=== PATIENT | male | born 1990 | race Caucasian/White ===

== ENCOUNTER 2016-04-20 11:30 | Inpatient (IN) | payer OTHER, MEDICAID ==
[2016-04-20] MEDS ORDERED: KETAMINE 50 MG/ML 10 ML VIAL IM STA (11:31)
[2016-04-20] MEDS ORDERED: ZIPRASIDONE 20 MG VIAL IM STA ×2 (12:11→13:16)
[2016-04-20] MEDS ORDERED: LORazepam 2 MG/ML SYRINGE IM STA ×2 (12:11→23:03)
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
[2016-04-20 12:27] LABS: Appearance,Urine Clear (Clear); Basophils % (A) 0 %; Bilirubin,Urine Negative (Negative); Eosinophils # (A) 0.1 k/uL (0-0.7); Eosinophils % (A) 1 %; Glucose,Urine (UA) Negative (Negative); HCT 46.4 % (39.0-53.0); HDW 2.39; HGB 15.9 gm/dL (13.0-17.5); Ketones,Urine Trace (Negative); Leukocyte Esterase,Urine Negative (Negative); Luc % (Auto) 2; Lymphocytes # (A) 1.1 k/uL (1.0-4.8); Lymphocytes % (A) 11 %; MCH 32.5 pg (25.0-35.0); MCHC 34.4 g/dL (31.0-37.0); MCV 94.5 fL (80.0-100.0); Mean Platelet Volume 7.5; Monocytes # (A) 0.7 k/uL (0-1.0); Monocytes % (A) 7 %; Neutrophils # (A) 7.8 k/uL (1.3-7.7); Neutrophils % (A) 79 %; Nitrite,Urine Negative (Negative); Protein,Urine Negative (Negative); RBC 4.91 m/uL (4.30-5.90); RDW 12.7 % (11.5-15.5); Specific Gravity,Urine 1.007 (1.001-1.035); UA Billing (MACRO vs. MICRO) CHEM; Urobilinogen,Urine <2.0 mg/dL (<2.0); WBC 9.9 k/uL (3.8-10.6); WBC (Perox) 9.64
[2016-04-20 12:36] LABS: ALT 43 U/L (21-72); AST 42 U/L (17-59); Acetaminophen <10.0 ug/mL; Alcohol <10 mg/dL; Alkaline Phosphatase 49 U/L (38-126); Anion Gap 14 mmol/L; Blood Urea Nitrogen 7 mg/dL (9-20); Calcium 9.9 mg/dL (8.4-10.2); Carbon Dioxide 25 mmol/L (22-30); Chloride 103 mmol/L (98-107); Glucose 98 mg/dL (74-99); Non-African American GFR(MDRD) >60 (>60 ml/min/1.73 sqM); Potassium 3.9 mmol/L (3.5-5.1); Salicylate <1.0 mg/dL; Sodium 142 mmol/L (137-145); Total Bilirubin 0.8 mg/dL (0.2-1.3); Total Protein 7.3 g/dL (6.3-8.2)
[2016-04-20 13:03] LABS: Creatine Kinase MB 7.9 ng/mL (0.0-2.4)
[2016-04-20] MEDS ORDERED: diphenhydrAMINE 50 MG/ML 1 ML VIAL IVP STA (13:03)
[2016-04-20] MEDS ORDERED: LORazepam 2 MG/ML SYRINGE IV STA (13:03)
[2016-04-20] MEDS ORDERED: SODIUM CHLORIDE 0.9% 1,000 ML IV STA (13:11)
--- NOTE | 2016-04-20 16:38 | CT ---
EXAMINATION TYPE: CT brain roddy wo con DATE OF EXAM: 04/20/2016 4:33 PM COMPARISON: NONE HISTORY: Headache. Neck pain. CT DLP: 1724.5 mGycm Automated exposure control for dose reduction was used. TECHNIQUE: CT scan of the head and cervical spine are performed without contrast. FINDINGS: Ventricles and sulci appear normal. There is no mass effect nor midline shift. There is n o sign of intracranial hemorrhage. The calvarium is intact. Cervical vertebra have normal spacing and alignment. Posterior elements are intact. Skull base is int act. Facet joints appear normal. There is no evidence for fracture. IMPRESSION: Normal CT scan of the brain. Normal CT scan of the cervical spine.
[2016-04-20] MEDS ORDERED: HALOPERIDOL LACTATE 5 MG/ML 1 ML VIAL IM STA (23:02)
[2016-04-21] MEDS ORDERED: ACETAMINOPHEN TAB 325 MG TAB PO PRN (03:29)
[2016-04-21] MEDS ORDERED: MAGNESIUM HYDROXIDE 2,400 MG/10 ML CUP PO PRN (03:29)
[2016-04-21] MEDS ORDERED: MAG HYDROX/AL HYDROX/SIMETH 30 ML CUP PO PRN (03:29)
[2016-04-21] MEDS ORDERED: HALOPERIDOL LACTATE 5 MG/ML 1 ML VIAL IM PRN ×2 (03:35→16:19)
[2016-04-21] MEDS ORDERED: LORazepam 2 MG/ML SYRINGE IM PRN (03:37)
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
[2016-04-21] MEDS: LORazepam 1 MG TAB PO PRN ×2 (17:53→21:57)
[2016-04-21] MEDS: HALOPERIDOL 5 MG TAB PO PRN (19:29)
[2016-04-21] MEDS ORDERED: QUEtiapine 100 MG TAB PO SCH (21:00)
--- NOTE | 2016-04-22 09:06 | P.PN ---
Progress Note - Text Interval history: The patient is found in his room he follows me to an interview room. It is documented that he slept approximate 7 hours last night. He continues to feel tired. He did get when necessary medication last evening. He denies having any symptoms but he does at times speak quietly and turns his head to the right side he has odd gestures with his upper extremities. He does endorse a dissociation feeling thinking that none of this is real. He continues to lack insight in his presentation to the hospital. With his permission I did contact his mother milo who completed the petition. She states that the patient typically does not experience hallucinations or delusional thoughts. She does not believe there is ever been a diagnosis of bipolar disorder or schizophrenia. She does believe that his current symptoms are drug-induced. She feels the problems began when his primary care physician put him on Adderall and this was after the patient had stopped Suboxone. Mental status exam: The patient is disheveled hygiene grooming impaired. Eye contact good speech is fluent mainly reactive to questions asked. He verbalizes he would like to go home several times. He is reporting no auditory or visual hallucinations however it's likely he is still is experiencing them based on his behavior in the session. He seemed to be responding to internal stimuli. He is endorsing no specific delusions again he is likely under reporting. Insight and judgment impaired. He is demonstrating no verbal or physical aggressiveness. He appears tired but not lethargic. Plan: The patient's will continue on the Seroquel I will increase the dose to 100 mg twice daily. We will monitor him for safety. It appears that his symptoms are slowly improving but he is not yet appropriate for discharge. His mother states he may not return home he will need other placement arranged. Vital signs reviewed.
--- NOTE | 2016-04-22 09:52 | CONS ---
DATE OF CONSULTATION: 04/21/2016 REASON FOR CONSULTATION: Medical management, requested by Dr. Mora. CONSULTATION: This is a 25-year-old patient of Dr. Danis Yeung. The patient was brought into the ER yesterday. The patient was brought in being restrained by the police. The patient had been very combative, threatening. The patient's furniture at the house had also been thrown around. He had to be [place] and pepper-sprayed. He was brought in by EMS after being handcuffed, restrained, and very combative. The patient was verbally and physically threatening people. The patient received ketamine 320 mg once, Ativan 2 mg IM once, Geodon 20 mg IM once, Ativan 2 mg once, Benadryl 50 mg once in the ER and then the Geodon 20 had to be repeated again. Patient had also received Haldol 5 mg day. He was calmed down before he could be brought into the psychiatry unit. I saw the patient in the presence of the nurse. The patient did state that he was [place] He was not hearing voices but there was a voice telling him to take care of all of these things. Earlier the patient was noted to be talking to himself. Other than that, the patient does reflect interest in music and plays the guitar, sometimes the piano. He is not employed. He lives with his parents. No family is present. REVIEW OF SYSTEMS: CONSTITUTIONAL: None. HEENT: None. RESPIRATORY: None. CARDIOVASCULAR: None. GASTROINTESTINAL: None. GENITOURINARY: None. MUSCULOSKELETAL: Some achiness in the muscles. DERMATOLOGICAL: Some bruising. HEMATOLOGICAL: Some bruising. PSYCHIATRY: As above. NEUROLOGICAL: None. PAST MEDICAL HISTORY: Patient states that he was on Suboxone. He was on Adderall in the past and then went back to take Adderall for the last 2 months. He sometimes takes extra doses of Adderall. He was diagnosed with ADHD. PAST SURGICAL HISTORY: None. SOCIAL HISTORY: Lives with his parents. Apparently history of alcoholism documented in ER. Denies smoking. Not employed. FAMILY HISTORY: Patient cannot tell. HOME MEDICATIONS: Adderall XR 30 mg daily. ALLERGIES: None. On examination, temperature 98.7, pulse 120, respiration 15, blood pressure 144/65, pulse ox 97% on room air. GENERAL APPEARANCE: Average built, lying in bed, somewhat restless, keeps fidgeting. EYES: Pupils equal. Conjunctivae normal. HEENT: External appearance of nose and ears normal. Oral cavity normal. NECK: JVD not raised. Mass not palpable. RESPIRATORY: Effort normal. Lungs are clear. CARDIOVASCULAR: First and second sounds normal. No edema. ABDOMEN: Soft, nontender. Liver and spleen not palpable. LYMPHATIC: No masses felt in the neck, groin or axillae. PSYCHIATRY: Patient is otherwise delusional. Had thoughts of jumping as stated above. NEUROLOGICAL: Pupils equal. No facial asymmetry. Moving all 4 limbs. Keeps fidgeting, moving about. INVESTIGATIONS: White count 9.8, hemoglobin 15.9, potassium 3.9, CPK 709. Serum ketones, trace positive. Urine drug screen positive for amphetamines. ASSESSMENT: 1. Possible acute toxicity with Adderall XR given. Symptoms including delusions and thought process is disconnected. The patient may have underlying psychosis. We will have to let the effects wear off. 2. Mild rhabdomyolysis from severe agitation. 3. Akathisia, side effect of the above drug. PLAN: I did review the literature. Long-acting benzodiazepine may be helpful. I did discuss this with Dr. Azevedo. In the meantime, encourage oral fluids. I would not recommend IV fluids as patient could be extremely harmful to himself. Attempt to encourage oral fluids.
[2016-04-22] MEDS: QUEtiapine 100 MG TAB PO SCH ×2 (10:00→21:26)
--- NOTE | 2016-04-23 09:41 | P.PN ---
Progress Note - Text Interval history: The patient is found in his room he follows me to an interview room. He states that he slept throughout the night and staff documented he slept 6 hours. He reports his appetite is stable. He denies having any symptoms however he still has an odd affect and demonstrates some psychomotor slowing. His hygiene and grooming are quite poor he has a follow body odor which is evident upon entering his room. He states he's been showering every day. He has not had any contact with his mother. He has no questions regarding the Seroquel and states he doesn't feel like he is on anything. Mental status exam: The patient is alert he is a disheveled appearance he is malodorous he is dressed in hospital gowns. He has visible tattoos on his upper extremities. Eye contact is intermittent. He demonstrates some psychomotor slowing, he demonstrates some bizarre affect with exaggerated laughter at times. He appears to still have some symptoms of psychosis although they are not endorsed. Insight and judgment is impaired. He demonstrates no verbal or physical aggressiveness and is directable. In terms of daily the week he states it's Friday with a second guess he states it's Friday. He is able to name the month and year. He is aware of his current location. Plan: We will titrate the Seroquel to 100 mg in the morning 200 mg in the evening. He is directed to shower and changed his bedding. He has not attended groups he is encouraged to start participating in the milieu. We will continue to monitor him for safety. He is not appropriate for discharge at this time but we anticipate his symptoms to improve over the course of the week. We will have to discuss placement options as his mother has previously stated he cannot return home. Vital signs reviewed.
[2016-04-23] MEDS ORDERED: QUEtiapine 100 MG TAB PO STA (10:10)
[2016-04-23] MEDS: QUEtiapine 100 MG TAB PO SCH (10:11)
[2016-04-23] MEDS: LORazepam 1 MG TAB PO PRN ×2 (10:13→14:33)
[2016-04-23] MEDS: QUEtiapine 200 MG TAB PO SCH (21:47)
[2016-04-24] MEDS: QUEtiapine 100 MG TAB PO SCH (08:15)
--- NOTE | 2016-04-24 10:24 | P.PN ---
Progress Note - Text Interval history: The patient is found in his room he follows me to an interview room. He expresses concerns that people are working against him. He feels the nurses are trying to create obstacles to prevent him from going home. He continues to believe that he is able to return home with his mother and so far she is told social work that's not possible. He is endorsing no auditory or visual hallucinations. It appears he did shower yesterday. Appetite is reported stable he did sleep through the night. He continues to voice a desire to be discharged. He is not willing to participate in inpatient chemical dependency treatment and does not wish to go to a three-quarter house. Mental status exam: The patient is alert there is some psychomotor slowing. He is a disheveled appearance he is dressed in his own clothing hygiene is improved there is no follow odor. Eye contact is intermittent. He has some suspicious thinking. He is endorsing no auditory or visual hallucinations. He reports no suicidal or homicidal ideation. Insight and judgment are limited. He demonstrates no verbal or physical aggressiveness. Affect is constricted. Plan: The patient is demonstrating slow clinical improvement. He still has some psychomotor slowing impaired insight into his presenting symptoms. We will continue to monitor him for safety he will continue on the Seroquel as written. Social work has been in contact with the patient's mother. He states he may be able to stay with his girlfriend he is asked to give us her contact information.
[2016-04-24] MEDS: QUEtiapine 200 MG TAB PO SCH (20:57)
[2016-04-25] MEDS: QUEtiapine 100 MG TAB PO SCH (08:53)
--- NOTE | 2016-04-25 09:37 | P.PN ---
Progress Note - Text Interval history: The patient is found in his room he follows me to an interview room. He reports he feels scared and frightened that he'll never be free again. He continues to not understand that his mother will not let him return home. He states "she just doesn't understand what's going on". He does endorse feelings of confusion when we discussed that's how he appears to staff. We discussed that he has not been attending groups and he is asked to attend groups so that we can more fully assess him each day. Mental status exam: The patient is alert he has a disheveled appearance he is dressed in his own clothing. Eye contact is poor he frequently looks off to the side. He frequently moves while seated in his chair but demonstrates no aggressive behavior. He reports no auditory or visual hallucinations he does seem to continue to have some paranoid thinking that is clouding his judgment. Insight and judgment are impaired. He ruminates on the idea of "wanting to be free". Affect is bland. No abnormal involuntary movements observed. Plan: The patient Seroquel will be titrated to 300 mg in the morning 100 mg in the evening. He is not yet stable for discharge. He is instructed to attend groups throughout the day. Social work notes reviewed he is not able to return home with his mother despite his belief that he can. He may require residential placement as no other options seem evident at this time. Again at length we discussed the recommendation for him to attend inpatient chemical dependency treatment and he declines he declines placement at a three-quarter house as well. Vital signs reviewed we will monitor him for safety
[2016-04-25] MEDS: LORazepam 1 MG TAB PO PRN (15:42)
[2016-04-25] MEDS ORDERED: QUEtiapine 100 MG TAB PO SCH (21:00)
[2016-04-26] MEDS: QUEtiapine 100 MG TAB PO SCH ×2 (09:34→21:08)
--- NOTE | 2016-04-26 09:36 | P.PN ---
Progress Note - Text Interval history: The patient is found in his room he follows me to an interview room. He is observed talking to himself mumbling. He states that he is a grown man and needs to be free. He states he doesn't want to be here forever. He verbalized some frustration during our brief session but was able to maintain nonviolent behavior. Soon after leaving the office he approached the dining room punched a hole in the wall and paced in the dining room. Staff were able to intervene and verbally de-escalate him he was brought his room and he was given Haldol and Ativan IM for acute agitation. Mental status exam: The patient is alert disheveled dressed in his own clothing. Eye contact is intermittent. He is noted to speak to himself indicating possible auditory hallucinations. The patient appeared frustrated during the session after our session this escalated dramatically where he became violent punching a wall. The patient continues to experience symptoms of psychosis he lacks insight into those symptoms. Plan: It does not appear that the Seroquel titration so far is addressing his symptoms we will cross taper off of that medication and initiate Zyprexa situs 10 mg twice daily. We will continue to monitor his behavior. It appears that he did de-escalate with staff intervention and was able to go back to his room. We will monitor for any potential violence towards others. His symptoms of psychosis do not seem to be reducing despite him no longer being on illicit drugs Adderall for several days.
[2016-04-26] MEDS ORDERED: OLANZapine ODT 10 MG TAB PO ONE (10:30)
[2016-04-26] MEDS: OLANZapine ODT 10 MG TAB PO SCH (16:50)
[2016-04-27] MEDS: OLANZapine ODT 10 MG TAB PO SCH ×2 (09:38→16:46)
[2016-04-27] MEDS: HALOPERIDOL 5 MG TAB PO PRN (10:58)
--- NOTE | 2016-04-27 16:42 | P.PN ---
Progress Note - Text Interval history: Patient seen in cross coverage for Dr. Azevedo today. Reports that he slept well last night and is eating well. He does not voice any adverse psychotropic medication side effects. He feels like he is getting along well with other people. Mental status exam: He is alert and cooperative to come to the interview room. His mood he describes as a little "grouchy" related to just getting up from a nap recently. His affect does show some range. He denies any thoughts of harm to self or others. He does not verbalize any auditory or visual hallucinations. He does not make any guillermo delusional type statements. He does not show any agitation. Plan: We'll maintain current psychotropic medications. We'll monitor for any medication side effects. Monitor for any agitation. We will continue to cover for Dr. Azevedo through the weekend.
[2016-04-27] MEDS: QUEtiapine 100 MG TAB PO SCH (20:55)
[2016-04-28 08:45] VITALS: BMI 32.3
[2016-04-28] MEDS: NICOTINE 14MG/24HR PATCH TRANSDERM SCH (09:28)
[2016-04-28] MEDS: OLANZapine ODT 10 MG TAB PO SCH ×2 (09:29→17:04)
[2016-04-28] MEDS: HALOPERIDOL 5 MG TAB PO PRN (11:35)
[2016-04-28] MEDS: LORazepam 1 MG TAB PO PRN (11:35)
--- NOTE | 2016-04-28 16:39 | P.PN ---
Progress Note - Text Interval history: Patient is seen in cross coverage today in for Dr. Azevedo. He reports that he did sleep well last night. He does describe some bizarre/vivid type dreams was able to sleep well. He is eating well. He states that when he wakes up he feels a little bit cranky but this subsides and his mood is doing pretty good. Mental status exam: He is alert and cooperative with the interview. His speech is fluent, not rapid or pressured. Does not show any agitation. His mood is described as pretty good. He denies any thoughts of harm to self or others. He denies any hallucinations. He does not verbalize any delusional thoughts. Plan: We'll maintain current psychotropic medication regimen. Continue to monitor for any medication side effects. Dr. Azevedo to resume care this patient starting tomorrow.
[2016-04-28] MEDS: QUEtiapine 100 MG TAB PO SCH (20:48)
--- NOTE | 2016-04-29 08:55 | P.PN ---
Progress Note - Text Interval history: The patient is found in the hallway he follows me to an interview room. He reports he is doing better. We did change the medication to Zyprexa he is endorsing no side effects from it. It was documented he slept 7 hours last evening. He reports attending some groups. We discussed his behavior on Friday where he kicked a hole in the wall and he states she is just frustrated that he can't be discharged. He still can't believe he is not able to return to his mother's home and states "she scared". Mental status exam: The patient is alert he has a disheveled appearance eye contact is intermittent. He is dressed in his own clothing. He seated calmly. He continues to endorse no auditory or visual hallucinations and states that it's usual for him to talk to himself. He is more reserved today and does not endorse any specific delusions. Insight and judgment remains limited. He demonstrates no verbal or physical aggressiveness during our session. Affect remains constricted. He reports no suicidal ideation intent or plan or any homicidal ideation intent or plan. Specifically he denies having thoughts of wanting to harm his mother as she will not let him return home. Plan: The patient will continue on his current psychotropic medications. I will confirm with the treatment team to discuss how his behavior was over the weekend. Compared to Friday morning there is improvement in his behavior. We need to be sure that his psychosis has stabilized prior to discharge for safety reasons. Vital signs reviewed.
[2016-04-29] MEDS: OLANZapine ODT 10 MG TAB PO SCH ×2 (09:12→16:34)
[2016-04-29] MEDS: NICOTINE 14MG/24HR PATCH TRANSDERM SCH (09:12)
[2016-04-29] MEDS: QUEtiapine 100 MG TAB PO SCH (19:59)
[2016-04-30] MEDS: OLANZapine ODT 10 MG TAB PO SCH ×2 (08:20→17:14)
[2016-04-30] MEDS: NICOTINE 14MG/24HR PATCH TRANSDERM SCH (08:20)
--- NOTE | 2016-04-30 11:25 | P.PN ---
Progress Note - Text Interval history: The patient is found in the hallway he follows me to an interview room. He reports things are improving. We again discussed the fact that he is not able to return home and prison placement may be necessary. He understands that his mother is trying to set limits. He voices no thoughts of aggression towards her. Staff report that the patient has attended some groups appropriately. It is documented that he slept 7 hours last evening. He has no questions or concerns regarding medication. Mental status exam: The patient is alert he has a disheveled appearance hygiene is adequate he did shower this morning. Eye contact is appropriate speech is fluent spontaneous. He appears less confused thoughts are more organized. He is endorsing no auditory or visual hallucinations. We have not been observing him talking out loud to himself yesterday or today. He is reporting no suicidal or homicidal ideation intent or plan. Insight and judgment are slowly improving. He demonstrates no verbal or physical aggressiveness. He is oriented to person place and date. Affect is constricted he does demonstrate some range. Plan: The patient will continue on the Zyprexa 10 mg twice daily we will discontinue the Seroquel as I would prefer to utilize one antipsychotic medication. He appears to be slowly stabilizing we will anticipate a possible discharge of . He continues to not want to participate in inpatient chemical dependency treatment or three-quarter house placement. We will continue to monitor him for safety and encourage his participation in the milieu. Vital signs reviewed.
[2016-04-30] MEDS: LORazepam 1 MG TAB PO PRN (21:32)
[2016-05-01 06:31] VITALS: TEMP 97.6
--- NOTE | 2016-05-01 08:57 | P.PN ---
Progress Note - Text Interval history: The patient is found in the dining room. He follows me to an interview room. He states his mood is improving. He feels he slept well last night. Appetite is stable. He did have a brief phone conversation with his mother and she continues to assert that he cannot return home. He states that he wants to try to stay with a friend upon discharge but will use [facility] placement as a backup he has no questions or concerns regarding his medication specifically the Zyprexa. Mental status exam: The patient is alert hygiene is adequate grooming is improved. Eye contact is improved. He attends to the conversation better. Affect demonstrates a more appropriate range. Thought process is becoming more linear. He demonstrates no tangential thinking this associations or flight of ideas. He states he has no suicidal ideation intent or plan. He reports no homicidal ideation intent or plan. He reports no feelings of anger towards his mother or other family members and states he's hoping to prove to them he can change. He states he would like to have a conversation with his mother without her thinking he wants money or needs a place to live. He demonstrates no verbal or physical aggressiveness. He is oriented to person place and date. Confusion appears to be resolving. Plan: The patient will continue on the Zyprexa as written. We are anticipating a discharge tomorrow if he demonstrates continued stability/clinical improvement. It appears he will require [facility] placement. Again he does not wish to participate in inpatient chemical dependency treatment or three-quarter house placement. Vital signs reviewed.
[2016-05-01] MEDS: NICOTINE 14MG/24HR PATCH TRANSDERM SCH (09:14)
[2016-05-01] MEDS: OLANZapine ODT 10 MG TAB PO SCH ×2 (09:14→17:08)
[2016-05-02 06:34] VITALS: BP 148/86; PULSE 99; RESP 18
[2016-05-02] MEDS: NICOTINE 14MG/24HR PATCH TRANSDERM SCH (08:54)
[2016-05-02] MEDS: OLANZapine ODT 10 MG TAB PO SCH (08:54)
--- NOTE | 2016-05-02 09:22 | P.DS ---
Providers Date of admission: 04/21/16 01:07 Expected date of discharge: 05/02/16 Attending physician: Tristan Azevedo Consults: 04/21/16 03:29 Consult Physician Routine Consulting Provider: Tereso Chavez Consult Reason/Comments: H & P and medical follow up Do you want consulting provider notified?: Yes, Notify in am Primary care physician: Danis Yeung - Discharge Diagnosis(es) (1) Unspecified psychosis Current Visit: Yes Status: Acute Priority: High (2) Opiate dependence Current Visit: Yes Status: Acute Priority: Low (3) Stimulant use disorder Current Visit: Yes Status: Acute Priority: High Hospital Course: Brief summary of admission note: This patient is a 25-year-old single male who was admitted to the mental health unit through the emergency room with acutely aggressive/violent behavior and psychosis. The patient was brought in from his mother's home after they called the police due to his disruptive behavior. The police had to physically subdue him and used mace and pepper spray. He was handcuffed in the emergency room and remained physically aggressive. The patient received numerous medications to control his behavior in the emergency room. There are reports that the patient had been talking to himself and experiencing hallucinations. Upon admission to the unit the patient did describe random delusional thoughts he conveyed a sense of persecutory thoughts and he was an impaired historian. He reported that he had been overusing Adderall for the 2 weeks prior to the admission. For full details please refer to my psychiatric evaluation dated 04/21/2016. Summary of hospital course: The patient's was admitted to the mental health unit on a petition and clinical certificate. He did defer when he met with his strategic manager. The patient was assumed to have Adderall induced psychosis we started him on Seroquel and the dose of the Seroquel was titrated over several days. The patient's remain psychotic despite that maneuver and his psychosis did not seem to improve. He lacked insight into his psychosis and began demanding to leave. Almost 1 week ago after having a session and learning that he would not be discharged that day he left the interview room and kicked a hole in the wall. We changed the Seroquel to Zyprexa 10 mg twice daily and over this last week there has been a significant improvement in his psychosis. The patient demonstrates clear thought he has been attending groups more appropriately area sleep has been stable appetite is been stable. He endorsed no suicidal or homicidal thoughts. He is endorsing no hallucinations. It was difficult for him to except that he was not able to return home as his mother is setting limits. He is more comfortable with the idea of going to a senior living and trying to find employment. Mental status exam: The patient is alert hygiene is good grooming is adequate he is dressed in his own clothing. Eye contact is appropriate. Speech is fluent spontaneous nonpressured. He reports his mood is better he is reporting no suicidal ideation intent or plan. He is reporting no homicidal ideation intent or plan. Specifically he denies having any thoughts of anger or wanting to harm his mother or any other family member. He verbalizes he understands why they're setting limits. He is reporting no auditory or visual hallucinations no ideas of reference no specific delusions as we reviewed several types. There is no evidence of psychosis at this time. The patient's insight and subsequent judgment have improved. He does not appear hypomanic or manic. Thought process is more linear he demonstrates no tangential thinking loose associations or flight of ideas. He remains oriented to person place and date. There is no verbal or physical aggressiveness demonstrated. There are no observed abnormal involuntary movements. Impressions 1. Psychosis unspecified, rule out stimulant-induced psychosis, rule out primary psychotic etiology, opiate use disorder, stimulant use disorder, rule out history of ADHD 2. Psychosocial dysfunction due to ongoing use of stimulants, homelessness, unemployment Plan: The patient will be discharged from mental health unit today. He no longer requires involuntary hospitalization. He has been eating sleep has been intact he is able to participate in his own activities of daily living. He voices no suicidal or homicidal ideation. For the last almost 1 week there has been no agitated behavior. He has been compliant with the Zyprexa 10 mg twice daily and we will continue that medication. Social work will arrange his outpatient mental health follow-up. [facility] placement will be arranged as he is not able to return to his mother's home. Numerous times encouraged him to participate in inpatient chemical dependency treatment but he does not wish to. We suggested three-quarter home placement he declined that as well. He is open to attending Narcotics Anonymous and he is encouraged to get a sponsor. He will discuss his chemical dependency issues further with his outpatient psychotherapist. There is no imminent safety risk he is appropriate for transition outpatient care. Obviously his safety risk is elevated should he restart use of stimulants or other illicit drugs and we discussed that in detail. He is encouraged to return to the hospital with any acute safety concerns. Patient Condition at Discharge: Stable Plan - Discharge Summary New Discharge Prescriptions: Nicotine 14Mg/24Hr Patch [Habitrol] 1 patch TRANSDERM DAILY #14 patch OLANZapine [ZyPREXA] 10 mg PO BID #60 tablet Discharge Medication List Nicotine 14Mg/24Hr Patch [Habitrol] 1 patch TRANSDERM DAILY #14 patch 05/02/16 [ Rx] OLANZapine [ZyPREXA] 10 mg PO BID #60 tablet 05/02/16 [Rx] Follow up Appointment(s)/Referral(s): Danis Yeung MD [Primary Care Provider] - 1 Week
== END 2016-05-02 12:36 | disposition home or self-care (01) | DRG 885 ==
LOC: EC 11:30 → 3MHU 04-21 01:07
PROVIDERS: ADMIT Psychiatry & Neurology Psychiatry; ATTEND Psychiatry & Neurology Psychiatry
DX: F29 Unspecified psychosis not due to a substance or known physiological condition (principal); M62.82 Rhabdomyolysis; F11.20 Opioid dependence, uncomplicated; F15.159 Other stimulant abuse with stimulant-induced psychotic disorder, unspecified; Z59.0 Homelessness; F90.9 Attention-deficit hyperactivity disorder, unspecified type; F59 Unspecified behavioral syndromes associated with physiological disturbances and physical factors
CPT/HCPCS: 36415; 70450; 72125; 80053; 80306; 80320; 81003; 82140; 82550; 82553; 83520; 83930; 84443; 85025; 96372; 96374; 96375

== ENCOUNTER 2018-07-11 08:43 | Observation (INO) | payer MEDICAID, OTHER ==
[2018-07-11] MEDS ORDERED: SODIUM CHLORIDE 0.9% 2,000 ML IV STA (08:53)
[2018-07-11] MEDS ORDERED: LORazepam 2 MG/ML INJ IV STA ×2 (08:54→10:53)
--- NOTE | 2018-07-11 08:57 | ED ---
General Adult HPI - General Stated complaint: mental health Time Seen by Provider: 07/11/18 08:48 Source: patient, police, EMS, RN notes reviewed Mode of arrival: EMS Limitations: no limitations - History of Present Illness Initial comments: Patient is a pleasant 27-year-old male presenting to the emergency department with EMS and police. Patient is unclear why he is here. Patient states he was trying to shower and the police broke in. Patient states he feels fine and has no complaints. Patient states he is always acting like this. Patient states sometimes he gets manic. Patient does admit to taking some Adderall last night. Patient states there may have been some extra Adderall taken. No suicidal or homicidal thoughts. Occasional alcohol use. Patient denies street drug use. Patient denies hallucinations. Patient denies any physical complaints. - Related Data Home Medications Medication Instructions Recorded Confirmed ARIPiprazole [Abilify] 20 mg PO DAILY 07/11/18 07/11/18 Allergies Allergy/AdvReac Type Severity Reaction Status Date / Time No Known Allergies Allergy Verified 07/11/18 10:39 Review of Systems ROS Statement: Those systems with pertinent positive or pertinent negative responses have been documented in the HPI. ROS Other: All systems not noted in ROS Statement are negative. Constitutional: Denies: fever Eyes: Denies: eye pain ENT: Denies: ear pain Respiratory: Denies: cough Cardiovascular: Denies: chest pain Endocrine: Denies: fatigue Gastrointestinal: Denies: abdominal pain Genitourinary: Denies: dysuria Musculoskeletal: Denies: back pain Skin: Denies: rash Neurological: Denies: weakness Past Medical History Past Medical History: No Reported History Additional Past Medical History / Comment(s): Herniated disc History of Any Multi-Drug Resistant Organisms: None Reported Past Surgical History: No Surgical Hx Reported Past Psychological History: No Psychological Hx Reported Smoking Status: Current every day smoker Past Alcohol Use History: Unable to Obtain Past Drug Use History: Unable to Obtain General Exam Limitations: no limitations General appearance: alert, other (Patient is restless) Head exam: Present: atraumatic, normocephalic Eye exam: Present: normal appearance, PERRL, EOMI ENT exam: Present: mucous membranes dry Neck exam: Present: normal inspection Respiratory exam: Present: normal lung sounds bilaterally Cardiovascular Exam: Present: regular rate, normal rhythm GI/Abdominal exam: Present: soft. Absent: tenderness Extremities exam: Present: normal inspection, full ROM. Absent: tenderness Neurological exam: Present: alert, oriented X3, CN II-XII intact. Absent: motor sensory deficit Psychiatric exam: Present: manic, other (Patient is restless. Difficulty concentrating holding conversation.) Skin exam: Present: normal color Course Vital Signs 07/11/18 07/11/18 08:53 15:58 Temperature 97.6 F Pulse Rate 129 H 99 Respiratory 22 16 Rate Blood Pressure 172/93 126/63 O2 Sat by Pulse 98 98 Oximetry EKG Findings - EKG Comments: EKG Findings:: Sinus tachycardia 110. NV 140. QRS 96. QT 324. QTC 438. Normal axis. Normal QRS. No acute ST change. Medical Decision Making - Medical Decision Making Patient reevaluated and remains drowsy following Ativan. Patient is still unable to hold conversation. Patient is arousable. Dr. Zimmerman has been paged for admission for Dr. Arabella Campbell. Mental health services will need evaluation. - Lab Data Result diagrams: 07/11/18 09:24 07/11/18 09:24 Lab Results 07/11/18 07/11/18 07/11/18 Range/Units 09:24 09:24 13:08 WBC 13.7 H (3.8-10.6) k/uL RBC 4.62 (4.30-5.90) m/uL Hgb 14.3 (13.0-17.5) gm/dL Hct 43.1 (39.0-53.0) % MCV 93.2 (80.0-100.0) fL MCH 30.9 (25.0-35.0) pg MCHC 33.1 (31.0-37.0) g/dL RDW 12.9 (11.5-15.5) % Plt Count 372 (150-450) k/uL Neutrophils % 80 % Lymphocytes % 13 % Monocytes % 6 % Eosinophils % 0 % Basophils % 0 % Neutrophils # 10.9 H (1.3-7.7) k/uL Lymphocytes # 1.7 (1.0-4.8) k/uL Monocytes # 0.8 (0-1.0) k/uL Eosinophils # 0.1 (0-0.7) k/uL Basophils # 0.1 (0-0.2) k/uL Sodium 143 (137-145) mmol/L Potassium 3.9 (3.5-5.1) mmol/L Chloride 106 (98-107) mmol/L Carbon Dioxide 25 (22-30) mmol/L Anion Gap 12 mmol/L BUN 19 (9-20) mg/dL Creatinine 1.24 (0.66-1.25) mg/dL Est GFR (CKD-EPI)AfAm >90 (>60 ml/min/1.73 sqM) Est GFR (CKD-EPI)NonAf 80 (>60 ml/min/1.73 sqM) Glucose 71 L (74-99) mg/dL Calcium 9.8 (8.4-10.2) mg/dL Total Bilirubin 0.8 (0.2-1.3) mg/dL AST 32 (17-59) U/L ALT 26 (21-72) U/L Alkaline Phosphatase 55 (38-126) U/L Creatine Kinase 575 H (55-170) U/L Total Protein 7.3 (6.3-8.2) g/dL Albumin 5.1 H (3.5-5.0) g/dL Urine Opiates Screen Not Detected (NotDetected) Ur Oxycodone Screen Not Detected (NotDetected) Urine Methadone Screen Not Detected (NotDetected) Ur Propoxyphene Screen Not Detected (NotDetected) Ur Barbiturates Screen Not Detected (NotDetected) U Tricyclic Antidepress Not Detected (NotDetected) Ur Phencyclidine Scrn Not Detected (NotDetected) Ur Amphetamines Screen Detected H (NotDetected) U Methamphetamines Scrn Detected H (NotDetected) U Benzodiazepines Scrn Detected H (NotDetected) Urine Cocaine Screen Not Detected (NotDetected) U Marijuana (THC) Screen Not Detected (NotDetected) Serum Alcohol <10 mg/dL Disposition Clinical Impression: Methamphetamine intoxication Disposition: ADMITTED IP TO THIS [facility] Condition: Serious Is patient prescribed a controlled substance at d/c from ED?: No Decision Time: 16:20
[2018-07-11 09:41] LABS: Basophils # (A) 0.1 k/uL (0-0.2); Basophils % (A) 0 %; Eosinophils # (A) 0.1 k/uL (0-0.7); Eosinophils % (A) 0 %; HCT 43.1 % (39.0-53.0); HGB 14.3 gm/dL (13.0-17.5); Lymphocytes # (A) 1.7 k/uL (1.0-4.8); Lymphocytes % (A) 13 %; MCH 30.9 pg (25.0-35.0); MCHC 33.1 g/dL (31.0-37.0); MCV 93.2 fL (80.0-100.0); Mean Platelet Volume 6.1; Monocytes # (A) 0.8 k/uL (0-1.0); Monocytes % (A) 6 %; Neutrophils # (A) 10.9 k/uL (1.3-7.7); Neutrophils % (A) 80 %; Platelet Count 372 k/uL (150-450); RBC 4.62 m/uL (4.30-5.90); RDW 12.9 % (11.5-15.5); WBC 13.7 k/uL (3.8-10.6)
[2018-07-11 09:54] LABS: ALT 26 U/L (21-72); AST 32 U/L (17-59); Albumin 5.1 g/dL (3.5-5.0); Alcohol <10 mg/dL; Alkaline Phosphatase 55 U/L (38-126); Anion Gap 12 mmol/L; Blood Urea Nitrogen 19 mg/dL (9-20); Calcium 9.8 mg/dL (8.4-10.2); Carbon Dioxide 25 mmol/L (22-30); Chloride 106 mmol/L (98-107); Creatine Kinase 575 U/L (55-170); Glucose 71 mg/dL (74-99); Potassium 3.9 mmol/L (3.5-5.1); Sodium 143 mmol/L (137-145); Total Bilirubin 0.8 mg/dL (0.2-1.3); Total Protein 7.3 g/dL (6.3-8.2)
[2018-07-11] MEDS ORDERED: SODIUM CHLORIDE 0.9% 1,000 ML IV STA (13:33)
[2018-07-11 13:43] LABS: Amphetamine Screen,Urine Detected (NotDetected); Barbiturate Screen,Urine Not Detected (NotDetected); Benzodiazepines Screen,Urine Detected (NotDetected); Cocaine Screen,Urine Not Detected (NotDetected); Methadone Screen, Urine Not Detected (NotDetected); Opiate Screen,Urine Not Detected (NotDetected); Oxycodone Screen, Urine Not Detected (NotDetected); Phencyclidine Screen,Urine Not Detected (NotDetected); Tricyclic Antidepressant,Urine Not Detected (NotDetected); Urn Cannabinoid Scrn Not Detected (NotDetected)
[2018-07-11] MEDS ORDERED: NALOXONE 0.4 MG/ML 1 ML VIAL IV PRN (16:20)
[2018-07-11] MEDS ORDERED: HALOPERIDOL LACTATE 5 MG/ML 1 ML VIAL IM PRN (16:22)
[2018-07-11] MEDS: LORazepam 2 MG/ML INJ IV PRN (19:00)
[2018-07-11] MEDS: NICOTINE 21MG/24HR PATCH TRANSDERM SCH (19:53)
[2018-07-11] MEDS: SODIUM CHLORIDE 0.9% 1,000 ML IV SCH (19:53)
[2018-07-12] MEDS: SODIUM CHLORIDE 0.9% 1,000 ML IV SCH ×2 (05:21→08:43)
[2018-07-12] MEDS: NICOTINE 21MG/24HR PATCH TRANSDERM SCH (08:39)
[2018-07-12] MEDS: LORazepam 2 MG/ML INJ IV PRN (10:25)
--- NOTE | 2018-07-12 11:57 | P.HPIM ---
History of Present Illness 27-year-old was admitted for methamphetamine overdose although patient is not overdosed and patient states he uses this often and occasionally drinks alcohol mostly alternate day. Patient is not willing to quit alcohol but will try and cut it down and patient is not expecting any withdrawals and I do not expect any withdrawals from alcohol. Patient was petitioned by the sister because of his bipolar disorder although there isrecent alert homicidal ideations. Natty is brought in here. Patient is not depressed at this time patient does have bipolar disorder denies any hallucinations patient is appropriate alert oriented 3 denies any physical complaints. Patient is presently not manic at this time may not require psychiatric hospitalization. Patient will be discharged today meantime psychiatric my evaluated the patient psychiatric was consulted from ER. Review of Systems REVIEW OF SYSTEMS: CONSTITUTIONAL: No fever, no malaise, no fatigue. HEENT: No recent visual problems or hearing problems. Denied any sore throat. CARDIOVASCULAR: No chest pain, orthopnea, PND, no palpitations, no syncope. PULMONARY: No shortness of breath, no cough, no hemoptysis. GASTROINTESTINAL: No diarrhea, no nausea, no vomiting, no abdominal pain. NEUROLOGICAL: No headaches, no weakness, no numbness. HEMATOLOGICAL: Denies any bleeding or petechiae. GENITOURINARY: Denies any burning micturition, frequency, or urgency. MUSCULOSKELETAL/RHEUMATOLOGICAL: Denies any joint pain, swelling, or any muscle pain. ENDOCRINE: Denies any polyuria or polydipsia. The rest of the 14-point review of systems is negative. Past Medical History Past Medical History: No Reported History Additional Past Medical History / Comment(s): Herniated disc History of Any Multi-Drug Resistant Organisms: None Reported Past Surgical History: No Surgical Hx Reported Smoking Status: Current every day smoker - Past Family History Mother History Unknown: Yes Medications and Allergies Home Medications Medication Instructions Recorded Confirmed Type ARIPiprazole [Abilify] 20 mg PO DAILY 07/11/18 07/11/18 History Allergies Allergy/AdvReac Type Severity Reaction Status Date / Time No Known Allergies Allergy Verified 07/11/18 10:39 Physical Exam Vitals: Vital Signs Temp Pulse Pulse Resp BP BP Pulse Ox 07/12/18 06:47 97.8 F 82 16 119/72 99 07/11/18 21:21 97.8 F 93 18 129/70 97 07/11/18 18:25 98.2 F 118 H 24 135/88 99 07/11/18 17:30 97 F L 100 16 108/62 98 07/11/18 15:58 99 16 126/63 98 Intake and Output 07/11/18 07/12/18 07/12/18 22:59 06:59 14:59 Intake Total 700 1370 Output Total 800 Balance 700 570 Intake: Intake, IV Titration 1170 Amount Sodium Chloride 0.9% 1, 1170 000 ml @ 130 mls/hr IV . Q7H42M [facility] Rx#:[id number] Oral 700 200 Output: Urine 800 Other: Voiding Method Urinal Urinal Urinal PHYSICAL EXAMINATION: GENERAL: The patient is alert and oriented x3, not in any acute distress. Well developed, well nourished. HEENT: Pupils are round and equally reacting to light. EOMI. No scleral icterus. No conjunctival pallor. Normocephalic, atraumatic. No pharyngeal erythema. No thyromegaly. CARDIOVASCULAR: S1 and S2 present. No murmurs, rubs, or gallops. PULMONARY: Chest is clear to auscultation, no wheezing or crackles. ABDOMEN: Soft, nontender, nondistended, normoactive bowel sounds. No palpable organomegaly. MUSCULOSKELETAL: No joint swelling or deformity. EXTREMITIES: No cyanosis, clubbing, or pedal edema. NEUROLOGICAL: Gross neurological examination did not reveal any focal deficits. SKIN: No rashes. Results CBC & Chem 7: 07/11/18 09:24 07/11/18 09:24 Labs: Abnormal Lab Results - Last 24 Hours (Table) 07/11/18 Range/Units 13:08 Ur Amphetamines Screen Detected H (NotDetected) U Methamphetamines Scrn Detected H (NotDetected) U Benzodiazepines Scrn Detected H (NotDetected) Thrombosis Risk Factor Assmnt - Choose All That Apply Any of the Below Risk Factors Present?: No Each Risk Factor Represents 2 Points: Patient confined to bed Thrombosis Risk Factor Assessment Total Risk Factor Score: 2 Thrombosis Risk Factor Assessment Level: Low Risk Assessment and Plan Plan: -Methamphetamine use, do not believe patient is overdosed on methamphetamine patient doesn't have any overdose symptoms. Patient is appropriate alert oriented 3. -Bipolar disorder no suicidal homicidal ideations patient is not manic patient is appropriate I cannot keep the patient against his will and patient doesn't need medical hospitalization and I do not believe patient will require psychiatric hospitalization either. -Alcohol abuse: Counseling was provided with the amount of alcohol he drinks and the frequency and or expected alcohol withdrawal -Nicotine abuse: Counseling was provided Patient will be discharged today
--- NOTE | 2018-07-12 11:58 | P.DS ---
Providers Date of admission: 07/11/18 16:20 Attending physician: Venus Zimmerman Consults: 07/11/18 16:20 Consult Physician Urgent Consulting Provider: Natasha Walker Consult Reason/Comments: Psychiatric evaluation Do you want consulting provider notified?: Yes Primary care physician: Trevon Leyva [facility] Course: As mentioned in HPI Patient Condition at Discharge: Serious Plan - Discharge Summary Discharge Rx Participant: No New Discharge Prescriptions: No Action ARIPiprazole [Abilify] 20 mg PO DAILY Discharge Medication List ARIPiprazole [Abilify] 20 mg PO DAILY 07/11/18 [History] Follow up Appointment(s)/Referral(s): Trevon Leyva DO [Primary Care Provider] - 1 Week Discharge Disposition: HOME SELF-CARE
[2018-07-12 12:22] VITALS: BP 121/78; PULSE 95; RESP 17; TEMP 98.7
--- NOTE | 2018-07-12 13:45 | P.HP ---
Psychiatric H&P - . H&P Date: 07/12/18 History & Physical: Allergies Allergy/AdvReac Type Severity Reaction Status Date / Time No Known Allergies Allergy Verified 07/11/18 10:39 Vital Signs Temp 98.7 F 07/12/18 12:22 Pulse 95 07/12/18 12:22 Resp 17 07/12/18 12:22 BP 121/78 07/12/18 12:22 Pulse Ox 100 07/12/18 12:22 Intake & Output 07/11/18 07/12/18 07/12/18 18:59 06:59 18:59 Intake Total 2070 2930 Output Total 800 Balance 1270 2930 Weight 99.79 kg Intake: Intake, IV Titration 1170 1350 Amount Sodium Chloride 0.9% 1, 1170 1350 000 ml @ 130 mls/hr IV . Q7H42M [facility] Rx#:[id number] Oral 900 1580 Output: Urine 800 Other: Voiding Method Urinal Urinal # Voids 4 Laboratory Last Values WBC 13.7 k/uL (3.8-10.6) H 07/11/18 09:24 RBC 4.62 m/uL (4.30-5.90) 07/11/18 09:24 Hgb 14.3 gm/dL (13.0-17.5) 07/11/18 09:24 Hct 43.1 % (39.0-53.0) 07/11/18 09:24 MCV 93.2 fL (80.0-100.0) 07/11/18 09:24 MCH 30.9 pg (25.0-35.0) 07/11/18 09:24 MCHC 33.1 g/dL (31.0-37.0) 07/11/18 09:24 RDW 12.9 % (11.5-15.5) 07/11/18 09:24 Plt Count 372 k/uL (150-450) 07/11/18 09:24 Neutrophils % 80 % 07/11/18 09:24 Lymphocytes % 13 % 07/11/18 09:24 Monocytes % 6 % 07/11/18 09:24 Eosinophils % 0 % 07/11/18 09:24 Basophils % 0 % 07/11/18 09:24 Neutrophils # 10.9 k/uL (1.3-7.7) H 07/11/18 09:24 Lymphocytes # 1.7 k/uL (1.0-4.8) 07/11/18 09:24 Monocytes # 0.8 k/uL (0-1.0) 07/11/18 09:24 Eosinophils # 0.1 k/uL (0-0.7) 07/11/18 09:24 Basophils # 0.1 k/uL (0-0.2) 07/11/18 09:24 Sodium 143 mmol/L (137-145) 07/11/18 09:24 Potassium 3.9 mmol/L (3.5-5.1) 07/11/18 09:24 Chloride 106 mmol/L (98-107) 07/11/18 09:24 Carbon Dioxide 25 mmol/L (22-30) 07/11/18 09:24 Anion Gap 12 mmol/L 07/11/18 09:24 BUN 19 mg/dL (9-20) 07/11/18 09:24 Creatinine 1.24 mg/dL (0.66-1.25) 07/11/18 09:24 Est GFR (CKD-EPI)AfAm >90 (>60 ml/min/1.73 sqM) 07/11/18 09:24 Est GFR (CKD-EPI)NonAf 80 (>60 ml/min/1.73 sqM) 07/11/18 09:24 Glucose 71 mg/dL (74-99) L 07/11/18 09:24 Calcium 9.8 mg/dL (8.4-10.2) 07/11/18 09:24 Total Bilirubin 0.8 mg/dL (0.2-1.3) 07/11/18 09:24 AST 32 U/L (17-59) 07/11/18 09:24 ALT 26 U/L (21-72) 07/11/18 09:24 Alkaline Phosphatase 55 U/L (38-126) 07/11/18 09:24 Creatine Kinase 575 U/L (55-170) H 07/11/18 09:24 Total Protein 7.3 g/dL (6.3-8.2) 07/11/18 09:24 Albumin 5.1 g/dL (3.5-5.0) H 07/11/18 09:24 Urine Opiates Screen Not Detected (NotDetected) 07/11/18 13:08 Ur Oxycodone Screen Not Detected (NotDetected) 07/11/18 13:08 Urine Methadone Screen Not Detected (NotDetected) 07/11/18 13:08 Ur Propoxyphene Screen Not Detected (NotDetected) 07/11/18 13:08 Ur Barbiturates Screen Not Detected (NotDetected) 07/11/18 13:08 U Tricyclic Antidepress Not Detected (NotDetected) 07/11/18 13:08 Ur Phencyclidine Scrn Not Detected (NotDetected) 07/11/18 13:08 Ur Amphetamines Screen Detected (NotDetected) H 07/11/18 13:08 U Methamphetamines Scrn Detected (NotDetected) H 07/11/18 13:08 U Benzodiazepines Scrn Detected (NotDetected) H 07/11/18 13:08 Urine Cocaine Screen Not Detected (NotDetected) 07/11/18 13:08 U Marijuana (THC) Screen Not Detected (NotDetected) 07/11/18 13:08 Serum Alcohol <10 mg/dL 07/11/18 09:24 07/12/18 13:45 Chief complaint 27 year old male admitted to medical floor on a petition filed by patients sister. Psychiatry was consulted to evaluate the patient . History of presenting illness Patient he doesnt know why he was admitted to the hospital. When asked about petition filed by his sister, he stated he does not know why his sister has petitioned him. He reports he has been living in a motel , [facility], over the past one month. He currently reports feeling violated, and stated he had no choice as some one made him to come here. He feels he was forced to be admitted to the hospital. He stated he felt very sad when he came in. Per staff patient was very agitated and threatening yesterday but today he is very calm and cooperative. He reports he will be happy if he can leave the hospital. He currently reports feeling scared that others might go into his room at the motel and they might take his belongings, he is anxious to get back to his room. He stated his motel is paid for two more days and is planning to stay there until then. He states his plan is to go to [facility] after two days and wants to get admitted into their rehab program. Prior to his hospitalization patient stated he was at his friends house drinking beer , he claims to have consumed seven beers and has taken 2 adderall pills of 20 mg each. He stated he gets adderall off of streets. Per petition patient was manager car had called patients sister about patients strange behavior, threatening, talking to himself, who has been on binge since july 08, 2018. Patient denies current auditory or visual hallucinations. He denies current suicidal or homicidal ideations. He reports being hopeful and is eager to get out of the hospital. He reports being diagnosed with bipolar disorder an year ago and follows up with Dr. Santillan out of [facility] either in [facility] or in [place]. He also reports seeing therapist named Po every week. He reports taking abilify prescribed through Dr. Santillan for his bipolar disorder. He claims to have ran out of his abilify a week ago and hasnt taken it since then. He is currentlky willing to resume his abilify. After discussing various medication options for alcohol use he has agreed to take acamprosate. Past psychiatric history One psychiatric admission two years ago at [facility] with similar presentation. Reports to have been in rehab program through [facility] an year ago. He claims rehab program has helped him and was able to stay away from most illicit drugs. Substance use history Reports use of illicit drugs from the age of 16. He claims to have used every kind of drug that was out there, including psycehdelics, hallucinogens, vicodins, benzodiazipines, alcohol , cocaine, marijuana, amphetamines , HEROIN,etc. he reports to have stopped using most of the illicit drugs years ago and says he is currently using alcohol. Reports to have been in rehab program through [facility] an year ago. He claims rehab program has helped him and was able to stay away from most illicit drugs. He is currently planning to get into [facility] rehab program. Legal problems Got off of probation a month ago for domestic problems. No cases pending currently. Family psychiatric treatment history None reported Medical history None reported per EMR Herniated disc Social history Born in [place], raised by both parents. Denies history of abuse. Has five siblings. Obtained high-school diploma. 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 He reports to have lost job a month ago. He says he was unable to put in 70 hours of work at [employer]. He stated his dad is selling his house and reports he will get some money from his dad. Mental status exam Patient appears stated age in fair grooming and hygiene. maintains good eye contact. No abnormal movements noted. speech and thought process are linear and goal directed. mood is reported as hopeful affect constricted. Denies current auditory or visual hallucinations . denies paranoid ideations. The patient is alert and oriented 4 and in no apparent distress. Denies suicidal or homicidal ideation. insight and judgment are improving as he is committed to get help and willing to go to [facility] for rehab program. Diagnosis Substance induced mood disorder Polysubstance use alcohol use, amphetamine use disorder Has history of bipolar disoerder for which he takes abilify prescribed through Dr. hunt out of [facility] Plan Patient to continue his out patient treatment through [facility] including Abilify 20mg po daily FOR BIPOLAR DISORDER and weekly therapies with Po. Will recommend Acomprosate 333mg pot id for alcohol use disorder. first calender worker/returned case inspector gave list of shelters and substance rehab programs. He is willing to get admitted into [place] rehab program.
[2018-07-12] MEDS ORDERED: ACAMPROSATE CALCIUM 333 MG TABLET.DR PO SCH (16:00)
[2018-07-13] MEDS ORDERED: ARIPiprazole 10 MG TAB PO SCH (09:00)
== END 2018-07-12 14:27 | disposition home or self-care (01) ==
LOC: EC 08:43 → 3NMEDONC 16:20
PROVIDERS: ADMIT Hospitalist; ATTEND Hospitalist
DX: F15.14 Other stimulant abuse with stimulant-induced mood disorder (principal); F31.9 Bipolar disorder, unspecified; F10.10 Alcohol abuse, uncomplicated; F17.200 Nicotine dependence, unspecified, uncomplicated; T43.596A Underdosing of other antipsychotics and neuroleptics, initial encounter; F19.10 Other psychoactive substance abuse, uncomplicated; Z91.14 Patient's other noncompliance with medication regimen; Z79.899 Other long term (current) drug therapy
CPT/HCPCS: 96376 ×2; 96361 ×3; 82075; 96374; 99285; 36415; 93005; 80053; 82550; 85025; 80306; G0378 ×2; G0480; S4990 ×2; J2060 ×2; 80320